=== PATIENT | male | born 1965 | race Caucasian/White ===

== ENCOUNTER 2018-03-19 16:59 | Emergency (ER) | payer BC ==
[~2018-03-19] VITALS: Ht 172.7 cm; Wt 86.2 kg
[~2018-03-19 16:59] MED LIST: ALBU90OI INH; AMOCLA500 PO; ATOR40TA PO; Aspir 8181 MG PO; CODACE30 PO; CYCL10 PO; FISH1000 PO; HYDACE5 PO; IBUP400 PO; NIAC500ER PO; Norco 10-325 T1 EACH PO; OMEG1CAP30; Prednisone20 MG PO; RXCODACET PO
[2018-03-19 18:01] LABS: BASOPHILS ABSOLUTE AUTO 0.03 K/mm3 (0.00-0.23); BASOPHILS PERCENT AUTO 0 % (0-2); EOSINOPHILS ABSOLUTE AUTO 0.08 K/mm3 (0.00-0.68); EOSINOPHILS PERCENT AUTO 1 % (0-6); Hemoglobin 14.9 g/dL (13.5-17.5); IMMATURE GRAN PERCENT AUTO 1 % (0-1); LYMPHOCYTES ABSOLUTE AUTO 0.72 K/mm3 (0.84-5.20); LYMPHOCYTES PERCENT AUTO 7 % (21-46); MONOCYTES ABSOLUTE AUTO 0.75 K/mm3 (0.16-1.47); MONOCYTES PERCENT AUTO 7 % (4-13); Mean Corpuscular HGB 31.6 pg (26.0-34.0); Mean Corpuscular HGB Conc 34.7 g/dL (31.5-36.5); Mean Corpuscular Volume 91 fL (80-100); Mean Platelet Volume 9.4 fL (9.1-12.4); NEUTROPHILS PERCENT AUTO 84 % (41-73); Platelet Count 166 K/mm3 (150-400); RDW Coefficient Variation 12.5 % (11.7-14.2); RDW Standard Deviation 41.9 fL (35.1-46.3); Red Blood Cell Count 4.71 M/mm3 (4.30-5.90); White Blood Cell Count 10.78 K/mm3 (4.00-11.30)
[2018-03-19 18:25] LABS: Alanine Aminotransfer (ALT/SGP 53 U/L (12-78); Albumin, Blood 3.7 g/dL (3.4-5.0); Alk Phos 72 U/L (50-136); Anion Gap 12 mmol/L (6-16); Aspartate Aminotrans (AST/SGOT 53 U/L (12-37); Bilirubin, Total 0.4 mg/dL (0.1-1.0); Blood Urea Nitrogen 19 mg/dL (8-24); Bun/Creatinine Ratio 18.6 (12.0-20.0); CO2, Blood 20 mmol/L (21-32); Calcium, Blood 8.4 mg/dL (8.5-10.1); Chloride, Blood 106 mmol/L (98-108); Creatinine, Blood 1.02 mg/dL (0.60-1.20); Globulin, Blood 3.8 g/dL (2.2-4.0); Glomerular Filtration Rate >60 (60-); Glucose, Blood 84 mg/dL (70-99); Sodium, Blood 138 mmol/L (136-145); Total Protein, Blood 7.5 g/dL (6.4-8.2)
[2018-03-19] MEDS ORDERED: HYDR1TAB94 PO (18:51)
[2018-03-19] MEDS ORDERED: Zofran8 MG PO (18:51)
[2018-03-19] MEDS ORDERED: Veetids 500500 MG PO (18:51)
[2018-03-19] MEDS ORDERED: Azor 10-40 MG1 EACH (19:23)
== END 2018-03-19 19:05 | disposition home or self-care (01) ==
LOC: ER 16:59
PROVIDERS: Physician Assistant
DX: S02.5XXA Fracture of tooth (traumatic), initial encounter for closed fracture (principal); S01.511A Laceration without foreign body of lip, initial encounter; S00.03XA Contusion of scalp, initial encounter; S70.12XA Contusion of left thigh, initial encounter; S00.81XA Abrasion of other part of head, initial encounter; Z23 Encounter for immunization; E78.00 Pure hypercholesterolemia, unspecified; Z79.899 Other long term (current) drug therapy; Z79.82 Long term (current) use of aspirin; W13.2XXA Fall from, out of or through roof, initial encounter
CPT/HCPCS: 12011; 70450; 80053; 85025; 90471; 90714; 96374; 96375; 96376; 99284; J2405; J3010

== ENCOUNTER 2018-10-22 10:16 | Observation (INO) | payer BC ==
[~2018-10-22] VITALS: Ht 172.7 cm; Wt 88.6 kg
[~2018-10-22 10:16] MED LIST changes: +Azor 10-40 MG1 EACH; +FISH OIL 1,0001 EAC1 PO; -FISH1000 PO; +HYDR1TAB94 PO; +Veetids 500500 MG PO; +Zofran8 MG PO
[2018-10-22 10:49] LABS: BASOPHILS ABSOLUTE AUTO 0.04 K/mm3 (0.00-0.23); BASOPHILS PERCENT AUTO 1 % (0-2); EOSINOPHILS ABSOLUTE AUTO 0.09 K/mm3 (0.00-0.68); EOSINOPHILS PERCENT AUTO 2 % (0-6); Hematocrit 44.5 % (37.0-53.0); Hemoglobin 15.6 g/dL (13.5-17.5); IMMATURE GRAN ABSOLUTE AUTO 0.02 K/mm3 (0.00-0.10); IMMATURE GRAN PERCENT AUTO 1 % (0-1); LYMPHOCYTES ABSOLUTE AUTO 0.97 K/mm3 (0.84-5.20); LYMPHOCYTES PERCENT AUTO 23 % (21-46); MONOCYTES ABSOLUTE AUTO 0.38 K/mm3 (0.16-1.47); MONOCYTES PERCENT AUTO 9 % (4-13); Mean Corpuscular HGB 31.4 pg (26.0-34.0); Mean Corpuscular HGB Conc 35.1 g/dL (31.5-36.5); Mean Corpuscular Volume 90 fL (80-100); Mean Platelet Volume 9.3 fL (9.1-12.4); NEUTROPHILS ABSOLUTE AUTO 2.68 K/mm3 (1.96-9.15); NEUTROPHILS PERCENT AUTO 64 % (41-73); Platelet Count 169 K/mm3 (150-400); RDW Coefficient Variation 12.3 % (11.7-14.2); RDW Standard Deviation 40.3 fL (35.1-46.3); Red Blood Cell Count 4.97 M/mm3 (4.30-5.90); White Blood Cell Count 4.18 K/mm3 (4.00-11.30)
[2018-10-22 11:06] LABS: Alanine Aminotransfer (ALT/SGP 43 U/L (12-78); Albumin, Blood 3.7 g/dL (3.4-5.0); Alk Phos 75 U/L (50-136); Anion Gap 7 mmol/L (6-16); Aspartate Aminotrans (AST/SGOT 35 U/L (12-37); Bilirubin, Total 0.3 mg/dL (0.1-1.0); Blood Urea Nitrogen 18 mg/dL (8-24); Bun/Creatinine Ratio 22.1 (12.0-20.0); CO2, Blood 24 mmol/L (21-32); Calcium, Blood 8.4 mg/dL (8.5-10.1); Chloride, Blood 109 mmol/L (98-108); Creatinine, Blood 0.81 mg/dL (0.60-1.20); Globulin, Blood 3.6 g/dL (2.2-4.0); Glomerular Filtration Rate >60 (60-); Glucose, Blood 96 mg/dL (70-99); Potassium, Blood 4.5 mmol/L (3.5-5.5); Sodium, Blood 140 mmol/L (136-145); Total Protein, Blood 7.3 g/dL (6.4-8.2); Troponin I <0.015 ng/mL (0.000-0.040)
[2018-10-22] MEDS ORDERED: AMLO5 PO (11:51)
[2018-10-22] MEDS ORDERED: LOSARTAN POTAS100 MG PO (11:51)
[2018-10-22] MEDS ORDERED: ERGO400 PO (11:52)
--- NOTE | 2018-10-22 14:29 | NUR ---
NITRO PATCH REMOVED STRESS TEST ORDERED, PATCH REMOVED AT 1420 10/22/18
--- NOTE | 2018-10-22 16:52 | NUR ---
SHIFT SUMMARY PT NEW ER ADMIT THIS SHIFT, NO NEW COMPLAINTS OF CP. PT REPORTED THAT AFTER GI COCKTAIL PAIN WAS MUCH BETTER, BACK PAIN HAD DISIPATED, SHOULDER PAIN WAS VERY SLIGHT, NO CP. WILL CONT TO MONITOR UNTIL REPORT GIVEN TO ALYSSA FLOREZ.
[2018-10-23 03:31] LABS: CHOL/HDL RATIO 7.6; Cholesterol 257 mg/dL (50-200); HDL Cholesterol 34 mg/dL (>39); LDL/HDL RATIO Unable to Calculate; Low Density Lipoprotein Chol Unable to Calculate mg/dL (0-110); Triglycerides 747 mg/dL (30-160); Very Low Density Lipoprot Chol Unable to Calculate mg/dL (6-32)
--- NOTE | 2018-10-23 05:51 | NUR ---
SHIFT SUMMARY PT IS A 53 Y/O, ADMITTED FOR CHEST PAIN. THE PT REPORTED THAT HIS PAIN WAS IN THE CENTER OF HIS CHEST, AND RADIATED TO HIS BACK AND HIS L SHOULDER BLADE. PER DAY SHIFT REPORT, THE PAIN WAS RELIEVED WITH A GI COCKTAIL, BUT WAS NOT RELIEVED WITH PO TYLENOL. WHEN THE PT BEGAN COMPLAINING OF THE PAIN RETURNING, THE HOSPITALIST DR MIR WAS CONSULTED. PEPCID AND PO HYDROCODONE WAS ORDERED. THE PEPCID DID NOT RELIEVE HIS PAIN, WHILE THE PO HYDROCODONE DID. HE DENIED ANY SOB OR NAUSEA. VITAL SIGNS STABLE. NO OTHER ACUTE CHANGES IN PT CONDITION NOTED. WILL CONTINUE TO MONITOR AND TREAT PER EMAR UNTIL HAND OFF TO DAY SHIFT.
--- NOTE | 2018-10-23 08:33 | NUR ---
PT GAVE PERMISSION TO SN TO GIVE CARE UNDER THE SUPERVISION OF ASIA FLOREZ. PT GAVE PERMISSION TO SN TO REVIEW MED RECORDS.
--- NOTE | 2018-10-23 08:34 | NUR ---
ASSUMED CARE OF PT UNDER THE SUPERVISION OF ASIA FLOREZ. PATIENT IS PLEASANT, ALERT AND ORIENTED X3 AND IS LAYING IN BED. NO COMPLAINTS OF PAIN OR N/V AT THIS TIME. CALL LIGHT WITHIN REACH.
--- NOTE | 2018-10-23 09:45 | NUR ---
AM MED GIVEN WITH CLINICAL INSTRUCTOR TROY FLOREZ. I ASSESSED PAIN LEVEL. PT STATES THAT HE IS CURRENTLY NOT IN PAIN AND RATES IT A 0/10. WHILE CHATTING WITH PT HE REVIELED THAT HE EXPERIENCED AN EPISODE OF CHEST PAIN PRIOR TO ROUNDING AND DID NOT NOTIFY THE RN. HE STATED THAT THE PAIN WAS IN HIS CHEST AND THAT IT "FELT LIKE SOMEONE WAS SITTING ON HIS CHEST" PT STATED THAT THE PAIN RESOLVED AFTER " ABOUT 5 MINUTES" SN TO RELAY INFO TO ASIA FLOREZ AND FOLLOW UP. WILL CONTINUE TO MONITOR PT.
--- NOTE | 2018-10-23 17:04 | NUR ---
SHIFT SUMMARY. A&OX4, INDEPENDENT IN ROOM. PT WITHOUT C/O OF CP SINCE AFTER STRESS TEST. PT REPORTED SOME MILD CHEST DISCOMFORT AFTER BREAKFAST THAT SELF RESOLVED. AWAITING RESULTS OF TREADMILL STRESS TEST AT THIS TIME. NO SOB, DIAPHORESIS, OR N/V. FAMILY AT BEDSIDE THROUGHOUT DAY. NO OTHER CHANGES.
--- NOTE | 2018-10-24 04:12 | NUR ---
SHIFT SUMMARY PT ADMITTED FOR CP. FULL CODE. REGULAR DIET. TELE-NSR AT A RATE OF 66 PER PATTERN HAND. 20G KHALIF TO L AC. POSSIBLE DISCHARGE TODAY PENDING RESULTS OF CARDIAC TESTS. PT PRESENTED TO THE ED WITH C/O CP/PRESSURE FOR THE PAST 2 DAYS THAT WORSENDED YESTERDAY. THE PT DESCRIBED THE PAIN FEELING LIKE SOMETHING WAS SITTING ON HIS CHEST, MOSTLY IN THE LEFT PARASTERNAL AREAS, AND IT RADIATED TO THE L HAND AND SHOULDER. PAIN MEDICATION ADMINISTERED PER EMAR FOR BACK PAIN BUT NO C/O CP OR PRESSURE SO FAR THIS SHIFT. PT APPEARED WORRIED ABOUT WHEN PT WOULD BE ABLE TO DISCHARGE DUE TO NEEDING TO RETURN TO WORK. PT IS ALERT, ORIENTED AND INDEPENDENT IN ROOM. HAS APPAREED TO SLEEP COMFORTABLY MOST OF THE NIGHT WITH NO APPARENT SIGNS OF ACUTE DISTRESS. ABLE TO MAKE NEEDS KNOWN AND CALL LIGHT IN REACH.
[2018-10-24] MEDS ORDERED: ATOR40TA PO (11:53)
[2018-10-24] MEDS ORDERED: PANT20 (11:54)
--- NOTE | 2018-10-24 13:00 | NUR ---
1208 PT DISCHARGED HOME VIA PERSONAL VEHICLE ACCOMPANIED BY . PT SELF AMBULATED TO FACILITY ENTRANCE. IV REMOVED. D/C PAPERWORK REVIEWED WITH PT AND COPY PROVIDED. NEW RX FAXED TO [facility] PER PT REQUEST. PT DENIED CHEST PAIN THIS SHIFT. NO NEW CHANGES.
== END 2018-10-24 12:08 | disposition home or self-care (01) ==
LOC: ER 10:16 → MEDS 10:17 → ER 12:56 → MEDS 12:56 → ENPENDDIS 10-24 11:00 → MEDS 10-24 12:08
PROVIDERS: Emergency Medicine; ADMIT Internal Medicine
DX: R07.89 Other chest pain (principal); E78.5 Hyperlipidemia, unspecified; I10 Essential (primary) hypertension; Z79.82 Long term (current) use of aspirin; Z79.899 Other long term (current) drug therapy
CPT/HCPCS: 36415; 71045; 80053; 80061; 83690; 83880; 84484; 85025; 93005; 93010; 93017; 99285-25; C9113; G0378

== ENCOUNTER 2018-11-09 09:09 | Day surgery (SDC) | payer BC ==
[~2018-11-09 09:09] MED LIST changes: +AMLO5 PO; +ERGO400 PO; +LOSARTAN POTAS100 MG PO; +PANT20
--- NOTE | 2018-11-09 09:55 | NUR ---
RESTING HR 62-66, 18GAUGE IV INITIATED RAC WITH FLUSH, NO RESISTANCE AND PT IMMEDIATELY REPORTS "TASTE" OF IV FLUID. NO CHEST PAIN AND PT AT THIS TIME IS ATTRIBUTING HIS EPISODE OF CP TO INDIGESTION.
--- NOTE | 2018-11-09 10:51 | NUR ---
IV DC'D INTACT. VSS. UP, AMBULATING W/O DIFF. RELEASED AFTER CONTACTING DR. MINOR'S OFFICE. FRANK VERBALIZES THAT PT IS OK TO RELEASE.
== END 2018-11-09 22:58 | disposition home or self-care (01) ==
LOC: CT 09:09 → ORD 09:09 → CT 10:00 → ORD 22:58
DX: R07.9 Chest pain, unspecified (principal)
CPT/HCPCS: 75574; Q9967

== ENCOUNTER 2018-11-24 05:57 | Day surgery (SDC) | payer BC ==
[~2018-11-24] VITALS: Ht 172.7 cm; Wt 89.0 kg
[2018-11-24] MEDS ORDERED: CLOP75 PO (06:12)
[2018-11-24] MEDS ORDERED: METO50ER PO (06:13)
--- NOTE | 2018-11-24 12:00 | NUR ---
2CC OF AIR REMOVED FROM TR BAND. NO BLEEDING OR HEMATOMA NOTED. VSS. NADN. FAMILY AT BEDSIDE. CALL LIGHT WITHIN REACH.
--- NOTE | 2018-11-24 12:16 | NUR ---
5CC MORE OF AIR REMOVED, SLIGHT OOZING NOTED. REINFLATED, NO BLEEDING NOTED.
--- NOTE | 2018-11-24 13:45 | NUR ---
DISCHARGE PT REMAINED A&OX3 AND DENIED ANY PAIN DURING RECOVERY. R RADIAL SITE REMAINED CDI-NO HEMATOMA NOTED. TR BAND REMOVED CLOTH DOT BANDAGE AND WHITE BOARD IN [id number] HEMATOMA NOTED. IV DC'D WITH CANULA IN TACT. PT UP TO RESTROOM AND DRESSED SELF INDEPENDANTLY. DISCHARGE PAPERWORK GONE OVER WITH PT AND SPOUSE. PT AND SPOUSE STATED THE UNDERSTANDING OF THE DISCHARGE EDUCATION GIVEN AND DENIED ANY QUESTIONS AT THIS TIME. PT WHEELED OUT BY THIS NURSE TO PERSONAL CAR WITH SPOUSE.
== END 2018-11-24 22:58 | disposition home or self-care (01) ==
LOC: MHTC 05:57
DX: I25.118 Atherosclerotic heart disease of native coronary artery with other forms of angina pectoris (principal); E78.00 Pure hypercholesterolemia, unspecified; E78.5 Hyperlipidemia, unspecified; I10 Essential (primary) hypertension; Z79.82 Long term (current) use of aspirin; Z79.899 Other long term (current) drug therapy; Z82.49 Family history of ischemic heart disease and other diseases of the circulatory system
CPT/HCPCS: 85347; 92978; 93458; 93571; 99152; 99153; C1725; C1753; C1769; C1874; C1894; C9600; J1644; J2250; J3010; J7030; Q9967

== ENCOUNTER 2018-12-01 14:40 | Observation (INO) | payer BC ==
[~2018-12-01] VITALS: Ht 172.7 cm; Wt 85.6 kg
[~2018-12-01 14:40] MED LIST changes: +CLOP75 PO; +METO50ER PO
[2018-12-01 15:24] LABS: BASOPHILS ABSOLUTE AUTO 0.06 K/mm3 (0.00-0.23); BASOPHILS PERCENT AUTO 1 % (0-2); EOSINOPHILS ABSOLUTE AUTO 0.12 K/mm3 (0.00-0.68); EOSINOPHILS PERCENT AUTO 2 % (0-6); Hemoglobin 15.3 g/dL (13.5-17.5); IMMATURE GRAN ABSOLUTE AUTO 0.02 K/mm3 (0.00-0.10); IMMATURE GRAN PERCENT AUTO 0 % (0-1); LYMPHOCYTES ABSOLUTE AUTO 1.05 K/mm3 (0.84-5.20); LYMPHOCYTES PERCENT AUTO 15 % (21-46); MONOCYTES ABSOLUTE AUTO 0.47 K/mm3 (0.16-1.47); MONOCYTES PERCENT AUTO 7 % (4-13); Mean Corpuscular HGB 31.5 pg (26.0-34.0); Mean Corpuscular HGB Conc 34.8 g/dL (31.5-36.5); Mean Corpuscular Volume 91 fL (80-100); Mean Platelet Volume 9.7 fL (9.1-12.4); NEUTROPHILS PERCENT AUTO 75 % (41-73); Platelet Count 179 K/mm3 (150-400); RDW Coefficient Variation 12.1 % (11.7-14.2); RDW Standard Deviation 40.2 fL (35.1-46.3); Red Blood Cell Count 4.85 M/mm3 (4.30-5.90); White Blood Cell Count 7.02 K/mm3 (4.00-11.30)
[2018-12-01 15:51] LABS: Alanine Aminotransfer (ALT/SGP 61 U/L (12-78); Albumin, Blood 4.1 g/dL (3.4-5.0); Albumin/Globulin Ratio 1.1 (0.8-1.8); Alk Phos 84 U/L (50-136); Anion Gap 10 mmol/L (6-16); Aspartate Aminotrans (AST/SGOT 43 U/L (12-37); Bilirubin, Total 0.7 mg/dL (0.1-1.0); Blood Urea Nitrogen 25 mg/dL (8-24); CO2, Blood 23 mmol/L (21-32); Calcium, Blood 9.2 mg/dL (8.5-10.1); Chloride, Blood 105 mmol/L (98-108); Creatinine, Blood 0.86 mg/dL (0.60-1.20); Globulin, Blood 3.7 g/dL (2.2-4.0); Glomerular Filtration Rate >60 (60-); Glucose, Blood 83 mg/dL (70-99); Potassium, Blood 3.9 mmol/L (3.5-5.5); Sodium, Blood 138 mmol/L (136-145); Total Protein, Blood 7.8 g/dL (6.4-8.2); Troponin I <0.015 ng/mL (0.000-0.040)
--- NOTE | 2018-12-01 22:06 | NUR ---
PATIENT ADMISSION THE PATIENT WAS ADMITTED TO THE MEDICAL FLOOR FROM THE ER, TO ROOM #325 FOR CHEST PAIN, OBSERVATION. THE PATIENT ARRIVED ON THE FLOOR AT 2030 VIA WHEELCHAIR. THE PATIENT ADMISSION WAS COMPLETE. THE PATIENT REQUESTED SOMETHING TO EAT. THE PATIENT'S VITALS WERE WNL, THE PATIENT IS A&O X4 WITH CLEAR LUNGS. THE PATIENT IS RESTING AT THIS, WILL CONTINUE TO MONITOR.
--- NOTE | 2018-12-02 05:15 | NUR ---
SHIFT SUMMARY. THE PATIENT WAS ADMITTED JUST AFTER THE START OF THE SHIFT TONIGHT, FOR OBSERVATION OF CHEST PAIN. THE PATIENT DENIED PAIN AT THE TIME OF ADMISSION. THE PATIENT PRESENTED WITH VITAL THAT WERE WNL, A&O X 4 AND LUNGS THAT WERE CLEAR. THE PATIENT HAS SLEPT MOST OF THE SHIFT. THE PATIENT IS RESTING AT THIS TIME, WILL CONTINUE TO MONITOR.
--- NOTE | 2018-12-02 10:03 | NUR ---
VERBAL ORDER TO DISCONTINUE THE CARDIAOLOGY CONSULT, PER DR WANG. NOTIFIED DR GARCIA.
--- NOTE | 2018-12-02 11:02 | NUR ---
SHIFT SUMMARY PT A&OX4. PT REPORTS THAT HE IS ANXIOUS TO LEAVE THIS AM, AWARE. PT CALM AND COOPERATIVE WITH CARE. PT RESTING IN BED DURING SHIFT, IND IN ROOM. PT DENIES CHEST PAIN/PRESSURE/DISCOMFORT AND DENIES PAIN T/O. PT DENIES SOB AND N/V. VSS. NO OTHER ACUTE CHANGES NOTED DURING SHIFT. PT/FAMILY EDUCATED ON DISCHARGE INSTRUCTIONS, MEDICATIONS AND FOLLOW UP APPOINTMENTS. PT ENCOURAGED TO CALL DR OR COME IN TO ER IF SYMPTOMS REOCCUR OR IF HE HAS WORSENING SYMPTOMS. PT LEFT ROOM AT 1100. PT STABLE UPON DISCHARGE.
== END 2018-12-02 11:15 | disposition home or self-care (01) ==
LOC: ER 14:40 → MEDS 14:41 → ENPENDDIS 12-02 10:35 → MEDS 12-02 11:15
PROVIDERS: Physician Assistant; ADMIT Family Medicine
DX: R07.89 Other chest pain (principal); I10 Essential (primary) hypertension; I25.10 Atherosclerotic heart disease of native coronary artery without angina pectoris; E78.5 Hyperlipidemia, unspecified; Z79.899 Other long term (current) drug therapy; Z79.82 Long term (current) use of aspirin
CPT/HCPCS: 36415; 71046; 80053; 84484; 85025; 93005; 93010; 96372; 99285-25; G0378; J1650

== ENCOUNTER 2019-09-03 09:58 | Observation (INO) | payer BC ==
[~2019-09-03] VITALS: Ht 172.7 cm; Wt 86.2 kg
[~2019-09-03 09:58] MED LIST changes: -ERGO400 PO; +Lipitor80 MG PO; +Vitamin D2000 UNIT PO
[2019-09-03 10:29] LABS: BASOPHILS ABSOLUTE AUTO 0.04 K/mm3 (0.00-0.23); BASOPHILS PERCENT AUTO 1 % (0-2); EOSINOPHILS ABSOLUTE AUTO 0.03 K/mm3 (0.00-0.68); EOSINOPHILS PERCENT AUTO 1 % (0-6); Hematocrit 44.3 % (37.0-53.0); Hemoglobin 15.2 g/dL (13.5-17.5); IMMATURE GRAN ABSOLUTE AUTO 0.01 K/mm3 (0.00-0.10); IMMATURE GRAN PERCENT AUTO 0 % (0-1); LYMPHOCYTES ABSOLUTE AUTO 0.71 K/mm3 (0.84-5.20); LYMPHOCYTES PERCENT AUTO 13 % (21-46); MONOCYTES ABSOLUTE AUTO 0.47 K/mm3 (0.16-1.47); MONOCYTES PERCENT AUTO 9 % (4-13); Mean Corpuscular HGB 31.7 pg (26.0-34.0); Mean Corpuscular HGB Conc 34.3 g/dL (31.5-36.5); Mean Corpuscular Volume 93 fL (80-100); Mean Platelet Volume 9.4 fL (9.1-12.4); NEUTROPHILS ABSOLUTE AUTO 4.08 K/mm3 (1.96-9.15); NEUTROPHILS PERCENT AUTO 76 % (41-73); Platelet Count 176 K/mm3 (150-400); RDW Coefficient Variation 12.2 % (11.7-14.2); RDW Standard Deviation 42.2 fL (35.1-46.3); Red Blood Cell Count 4.79 M/mm3 (4.30-5.90); White Blood Cell Count 5.34 K/mm3 (4.00-11.30)
[2019-09-03 10:49] LABS: Alanine Aminotransfer (ALT/SGP 51 U/L (12-78); Albumin, Blood 3.9 g/dL (3.4-5.0); Albumin/Globulin Ratio 1.2 (0.8-1.8); Alk Phos 73 U/L (50-136); Anion Gap 6 mmol/L (6-16); Aspartate Aminotrans (AST/SGOT 33 U/L (12-37); Bilirubin, Total 0.4 mg/dL (0.1-1.0); Blood Urea Nitrogen 15 mg/dL (8-24); CO2, Blood 25 mmol/L (21-32); Calcium, Blood 8.8 mg/dL (8.5-10.1); Chloride, Blood 110 mmol/L (98-108); Creatinine, Blood 0.94 mg/dL (0.60-1.20); Globulin, Blood 3.3 g/dL (2.2-4.0); Glomerular Filtration Rate >60 (60-); Glucose, Blood 93 mg/dL (70-99); Potassium, Blood 3.9 mmol/L (3.5-5.5); Sodium, Blood 141 mmol/L (136-145); Total Protein, Blood 7.2 g/dL (6.4-8.2); Troponin I <0.015 ng/mL (0.000-0.040)
[2019-09-03] MEDS ORDERED: FENOFIBRATE43 MG PO (13:10)
[2019-09-03 13:18] LABS: International Normalized Ratio 0.99; Prothrombin Time Results 10.5 Sec (9.7-11.5)
--- NOTE | 2019-09-03 13:41 | NUR ---
Echocardiogram completed.
[2019-09-04 03:55] LABS: BASOPHILS ABSOLUTE AUTO 0.05 K/mm3 (0.00-0.23); BASOPHILS PERCENT AUTO 1 % (0-2); EOSINOPHILS ABSOLUTE AUTO 0.08 K/mm3 (0.00-0.68); EOSINOPHILS PERCENT AUTO 1 % (0-6); Hematocrit 43.5 % (37.0-53.0); Hemoglobin 15.2 g/dL (13.5-17.5); IMMATURE GRAN ABSOLUTE AUTO 0.01 K/mm3 (0.00-0.10); IMMATURE GRAN PERCENT AUTO 0 % (0-1); LYMPHOCYTES ABSOLUTE AUTO 0.92 K/mm3 (0.84-5.20); LYMPHOCYTES PERCENT AUTO 14 % (21-46); MONOCYTES ABSOLUTE AUTO 0.56 K/mm3 (0.16-1.47); MONOCYTES PERCENT AUTO 9 % (4-13); Mean Corpuscular HGB 31.8 pg (26.0-34.0); Mean Corpuscular HGB Conc 34.9 g/dL (31.5-36.5); Mean Corpuscular Volume 91 fL (80-100); Mean Platelet Volume 9.5 fL (9.1-12.4); NEUTROPHILS ABSOLUTE AUTO 4.76 K/mm3 (1.96-9.15); NEUTROPHILS PERCENT AUTO 75 % (41-73); Platelet Count 158 K/mm3 (150-400); RDW Coefficient Variation 12.2 % (11.7-14.2); RDW Standard Deviation 40.2 fL (35.1-46.3); Red Blood Cell Count 4.78 M/mm3 (4.30-5.90); White Blood Cell Count 6.38 K/mm3 (4.00-11.30)
[2019-09-04 04:13] LABS: Anion Gap 7 mmol/L (6-16); Blood Urea Nitrogen 17 mg/dL (8-24); Bun/Creatinine Ratio 18.6 (12.0-20.0); CO2, Blood 23 mmol/L (21-32); Calcium, Blood 8.3 mg/dL (8.5-10.1); Chloride, Blood 107 mmol/L (98-108); Creatinine, Blood 0.92 mg/dL (0.60-1.20); Glomerular Filtration Rate >60 (60-); Glucose, Blood 103 mg/dL (70-99); Potassium, Blood 3.8 mmol/L (3.5-5.5); Sodium, Blood 137 mmol/L (136-145)
--- NOTE | 2019-09-04 07:53 | NUR ---
TR BAND 09/03/19 2030 3CC DRAW 2100 2CC DRAW 2200 3CC PULLED, BLED, 2CC INFUSED BACK. BLEEDING STOPPED. 2235 1CC 2240 1CC 2358 4CC 09/04/19 0100 TR BAND OFF. SITE CLEANED. OPSITE PLACED. ARM BOARDF IN PLACE. NO NEW BLEEDING.
--- NOTE | 2019-09-04 07:55 | NUR ---
END PF SHOFT SUMMARY NO ACUTE CHANGES THIS SHIFT. VSS. DENIES CP. TR BAND OFF, SEE NOTES. ARMBOARD IN PLACE. PT HAS BEEN RESTING IN BED T/O THE NIGHT. ACCESS SITE SOMEWHAT TENDER TO TOUCH, SOME BRUISING NOTED PROXIMAL TO SITE BUT HAS STAYE THE SAME AND LESSENED SOME SINCE THE BEGINNING OF THE SHIFT. OTHERWISE, PT HAS USED CALL LIGHT APPROP[RIATELY. REPORT GIVEN TO ONCOMING RN. DR MINOR VISITED PT AT 0600,. STATES PT SHOULD DC TODAY.
--- NOTE | 2019-09-04 09:57 | NUR ---
ASSUMED CARE APPROXIMATELY 0700; PT A&O; PT ANXIOUS FOR DISCHARGE; DENIES CHEST PAIN; DENIES NEEDS AT THIS TIME; PT ON RA; O2 SATS >94; LUNG SOUNDS CLEAR T/O; PT STATES HIS MOTHER WILL BE IN SOON AND DRIVE HIM HOME UPON DISCHARGE; 20 G L HAND IV FLUSHES APPROPRIATELY; BREAKFAST TRAY BROUGHT IN TO PT; CALL LIGHT IN REACH; BED IN LOWEST POSITION; WILL CONTINUE TO MONITOR AND ASSESS CLOSELY.
[2019-09-04] MEDS ORDERED: AMLO10 PO (11:05)
[2019-09-04] MEDS ORDERED: BRILINTA90 MG PO (11:06)
--- NOTE | 2019-09-04 11:47 | NUR ---
DISCHARGE REVIEWED W/ PT; NEW MEDICATION INFORMATION GIVEN; PT'S PHARMACY CALLED W/ NEW MEDICATION ORDERS; PT EXPRESSED UNDERSTANDING AND STATED HE WOULD KEEP FOLLOW UP APPOINTMENTS; IV DISCONTINUED WNL AND INTACT; MOTHER PRESENT TO ASSIST PT; ALL BELONGINGS SENT W/ PT AND HIS MOTHER; AID PUSHED PT OUT IN WHEELCHAIR.
== END 2019-09-04 11:36 | disposition home or self-care (01) ==
LOC: ER 09:58 → PCU 09:59
PROVIDERS: Emergency Medicine; Internal Medicine Cardiovascular Disease; ADMIT Internal Medicine
PROC: B2111ZZ Fluoroscopy of Multiple Coronary Arteries using Low Osmolar Contrast (ICD-10-PCS; principal; 2019-09-03)
PROC: 4A023N7 Measurement of Cardiac Sampling and Pressure, Left Heart, Percutaneous Approach (ICD-10-PCS; principal; 2019-09-03)
DX: I25.110 Atherosclerotic heart disease of native coronary artery with unstable angina pectoris (principal); I10 Essential (primary) hypertension; E78.5 Hyperlipidemia, unspecified; R00.1 Bradycardia, unspecified; E78.00 Pure hypercholesterolemia, unspecified; Z79.82 Long term (current) use of aspirin; Z79.02 Long term (current) use of antithrombotics/antiplatelets; Z79.899 Other long term (current) drug therapy; Z95.5 Presence of coronary angioplasty implant and graft
CPT/HCPCS: 36415; 71046; 80048; 80053; 83690; 84484; 85025; 85347; 85610; 86850; 86900; 86901; 92978; 93005; 93010; 93306; 93458; 99152; 99153; 99285-25; C1725; C1753; C1769; C1874; C1887; C1894; C9600; G0378; J1644; J2250; J3010; J7030; Q9967

== ENCOUNTER 2022-11-07 09:34 | Emergency (ER) | payer BC ==
[~2022-11-07] VITALS: Ht 172.7 cm; Wt 86.2 kg
[~2022-11-07 09:34] MED LIST changes: +AMLO10 PO; +BRILINTA90 MG PO; +FENOFIBRATE43 MG PO
[2022-11-07 10:14] LABS: BASOPHILS ABSOLUTE AUTO 0.03 K/mm3 (0.00-0.23); BASOPHILS PERCENT AUTO 1 % (0-2); EOSINOPHILS ABSOLUTE AUTO 0.06 K/mm3 (0.00-0.68); EOSINOPHILS PERCENT AUTO 1 % (0-6); Hematocrit 46.2 % (37.0-53.0); Hemoglobin 16.8 g/dL (13.5-17.5); IMMATURE GRAN ABSOLUTE AUTO 0.01 K/mm3 (0.00-0.10); IMMATURE GRAN PERCENT AUTO 0 % (0-1); LYMPHOCYTES ABSOLUTE AUTO 0.74 K/mm3 (0.84-5.20); LYMPHOCYTES PERCENT AUTO 15 % (21-46); MONOCYTES ABSOLUTE AUTO 0.47 K/mm3 (0.16-1.47); MONOCYTES PERCENT AUTO 10 % (4-13); Mean Corpuscular HGB 31.5 pg (26.0-34.0); Mean Corpuscular HGB Conc 36.4 g/dL (31.5-36.5); Mean Corpuscular Volume 87 fL (80-100); Mean Platelet Volume 9.2 fL (9.1-12.4); NEUTROPHILS PERCENT AUTO 73 % (41-73); Platelet Count 152 K/mm3 (150-400); RDW Coefficient Variation 12.2 % (11.7-14.2); RDW Standard Deviation 38.5 fL (35.1-46.3); Red Blood Cell Count 5.33 M/mm3 (4.30-5.90); White Blood Cell Count 4.81 K/mm3 (4.00-11.30)
[2022-11-07 10:34] LABS: Albumin, Blood 3.6 g/dL (3.4-5.0); Bilirubin, Total 1.3 mg/dL (0.1-1.0); Bun/Creatinine Ratio 18.1 (12.0-20.0); Calcium, Blood 8.7 mg/dL (8.5-10.1); Creatinine, Blood 0.83 mg/dL (0.60-1.20); Globulin, Blood 3.6 g/dL (2.2-4.0); Total Protein, Blood 7.2 g/dL (6.4-8.2)
[2022-11-07 10:52] LABS: Influenza A, PCR NEGATIVE (NEGATIVE); Influenza B, PCR NEGATIVE (NEGATIVE); Resp Syncytial Virus, PCR NEGATIVE (NEGATIVE); SARS-Cov-2 (COVID-19) PCR, MMC NEGATIVE (NEGATIVE)
== END 2022-11-07 12:51 | disposition home or self-care (01) ==
LOC: ER 09:34
PROVIDERS: Emergency Medicine
DX: R07.89 Other chest pain (principal); R05.9 Cough, unspecified; R09.81 Nasal congestion; I10 Essential (primary) hypertension; E78.5 Hyperlipidemia, unspecified; I25.10 Atherosclerotic heart disease of native coronary artery without angina pectoris; Z20.822 Contact with and (suspected) exposure to COVID-19; Z79.899 Other long term (current) drug therapy; Z79.82 Long term (current) use of aspirin
CPT/HCPCS: 0241U; 36415; 71045; 80053; 84484; 85025; 93005; 93010; A9270